=== PATIENT | female | born 1985 ===

== ENCOUNTER 2021-10-02 14:13 | Outpatient (CLI) | payer OTHER | END 2021-10-02 15:35 | disposition home or self-care (01) | LOC: PRENATAL 14:13 | PROVIDERS: ATTEND Obstetrics & Gynecology Maternal & Fetal Medicine | DX: O35.0XX0 Maternal care for (suspected) central nervous system malformation in fetus, not applicable or unspecified (principal); O35.3XX0 Maternal care for (suspected) damage to fetus from viral disease in mother, not applicable or unspecified; O09.529 Supervision of elderly multigravida, unspecified trimester; Z88.0 Allergy status to penicillin; Z3A.22 22 weeks gestation of pregnancy ==